=== PATIENT | female | born 1995 | race Caucasian/White ===

== ENCOUNTER 2017-10-01 15:52 | Emergency (ER) | payer SELFPAY ==
[2017-10-01 16:09] LABS: URINE APPEARANCE SL CLOUDY; URINE BILIRUBIN NEGATIVE (NEGATIVE); URINE BLOOD TRACE-I (NEGATIVE); URINE COLOR YELLOW; URINE GLUCOSE (UA) NEGATIVE (NEGATIVE); URINE KETONE NEGATIVE (NEGATIVE); URINE LEUKOCYTE ESTERASE TRACE (NEGATIVE); URINE NITRITE NEGATIVE (NEGATIVE); URINE PROTEIN NEGATIVE (NEGATIVE); URINE UROBILINOGEN 0.2 E.U./dL (0.20 - 1.00)
--- NOTE | 2017-10-01 16:18 | Emergency Department Record ---
History of Present Illness - General Chief Complaint: Abdominal Pain Stated Complaint: ABDOMINAL PAIN Time Seen by Provider: 10/01/17 15:57 Mode of Arrival: Ambulatory - History of Present Illness Initial Comments: abdominal pain bilateral and vomiting and diarrhea and glucose 104 used her grandmother's glucose machine. PSH appendectomy. Onset/Timin -: Month(s) Location: Diffuse Radiation: Back Severity: Moderate Quality: Cramping Consistency: Constant Improves With: Rest Worsens With: Movement Associated Symptoms: Anorexia Treatments Prior to Arrival: NSAIDs - Related Data LMP (females 10-50): Unknown Patient : No Previous Rx's Medication Instructions Recorded Acetaminophen with Codeine 1 each PO Q6HR #14 tablet 10/01/17 [Tylenol with Codeine #3 Tablet] Levofloxacin [Levaquin Tab] 500 mg PO DAILY #10 tab 10/01/17 Metronidazole [Flagyl] 500 mg PO TID #30 tablet 10/01/17 Allergies Allergy/AdvReac Type Severity Reaction Status Date / Time cefaclor [From Ceclor] Allergy HIVES Verified 10/01/17 16:04 acetaminophen [From Vicodin] AdvReac VOMITING Verified 10/01/17 16:04 amoxicillin trihydrate AdvReac VOMITING Verified 10/01/17 16:04 [From Augmentin] hydrocodone bitartrate AdvReac VOMITING Verified 10/01/17 16:04 [From Vicodin] potassium clavulanate AdvReac VOMITING Verified 10/01/17 16:04 [From Augmentin] Travel Screening - Travel/Exposure Within Last 30 Days Have you traveled within the last 30 days?: No - Travel/Exposure Within Last Year Have you traveled outside the [place] in the last year?: No - Additonal Travel Details Have you been exposed to anyone with a communicable illness?: No - Travel Symptoms Symptom Screening: None Review of Systems Reviewed: No additional complaints except as noted below Constitutional: Reports: As per HPI. Denies: Chills, Fever, Malaise, Night sweats, Weakness, Weight change Eyes: Reports: As per HPI. Denies: Eye discharge, Eye pain, Photophobia, Vision change ENT: Reports: As per HPI. Denies: Congestion, Dental pain, Ear pain, Epistaxis , Hearing loss, Throat pain Respiratory: Reports: As per HPI. Denies: Cough, Dyspnea, Hemoptysis, Stridor, Wheezes Cardiovascular: Reports: As per HPI. Denies: Arrhythmia, Chest pain, Dyspnea on exertion, Edema, Murmurs, Orthopnea, Palpitations, Paroxysmal nocturnal dyspnea, Rheumatic Fever, Syncope Endocrine: Reports: As per HPI. Denies: Fatigue, Heat or cold intolerance, Polydipsia, Polyuria Gastrointestinal: Reports: As per HPI, Abdominal pain, Diarrhea, Nausea, Vomiting. Denies: Constipation, Hematemesis, Hematochezia, Melena Genitourinary: Reports: As per HPI. Denies: Abnormal menses, Discharge, Dyspareunia, Dysuria, Frequency, Hematuria, Incontinence, Retention, Urgency Musculoskeletal: Reports: As per HPI. Denies: Arthralgia, Back pain, Gout, Joint swelling, Myalgia, Neck pain Skin: Reports: As per HPI. Denies: Bruising, Change in color, Change in hair/ nails, Lesions, Pruritus, Rash Neurological: Reports: As per HPI. Denies: Abnormal gait, Confusion, Headache, Numbness, Paresthesias, Seizure, Tingling, Tremors, Vertigo, Weakness Psychiatric: Reports: As per HPI. Denies: Anxiety, Auditory hallucinations, Depression, Homicidal thoughts, Suicidal thoughts, Visual hallucinations Hematological/Lymphatic: Reports: As per HPI. Denies: Anemia, Blood Clots, Easy bleeding, Easy bruising, Swollen glands Past Medical History - SOCIAL HISTORY Smoking Status: Never smoker Alcohol Use: Occasional Drug Use: None - RESPIRATORY Hx Respiratory Disorders: No - CARDIOVASCULAR Hx Cardio Disorders: No - NEURO Hx Neuro Disorders: No - GI Hx GI Disorders: No - Hx Genitourinary Disorders: No - ENDOCRINE Hx Endocrine Disorders: No - MUSCULOSKELETAL Hx Musculoskeletal Disorders: No - PSYCH Hx Psych Problems: No - HEMATOLOGY/ONCOLOGY Hx Hematology/Oncology Disorders: Yes Hx Anemia: Yes Family Medical History Any Significant Family History?: Yes Family Hx Comment (NOT TO BE USED IN PLACE OF ITEMS BELOW): Mom hysterecotmy Hx Kidney Disease: Father, Mother Physical Exam - General General Appearance: Alert, Oriented x3, Cooperative, No acute distress - Head Head exam: Normal inspection - Eye Eye exam: Normal appearance, PERRL Pupils: Normal accommodation - ENT ENT exam: Normal exam, Mucous membranes moist, Normal external ear exam, Normal orophraynx, TM's normal bilaterally Ear exam: Normal external inspection. negative: External canal tenderness Nasal Exam: Normal inspection. negative: Discharge, Sinus tenderness Mouth exam: Normal external inspection, Tongue normal Teeth exam: Normal inspection. negative: Dental caries Throat exam: Normal inspection. negative: Tonsillar erythema, Tonsillar exudate - Neck Neck exam: Normal inspection, Full ROM. negative: Tenderness - Respiratory Respiratory exam: Normal lung sounds bilaterally. negative: Respiratory distress - Cardiovascular Cardiovascular Exam: Regular rate, Normal rhythm, Normal heart sounds - GI/Abdominal GI/Abdominal exam: Soft, Normal bowel sounds, Tenderness (abdominal pain right worse than left ) - Rectal Rectal exam: Deferred - exam: Adnexal tenderness (L), Adnexal tenderness (R), Cervical discharge, cervical motion tenderness, Normal external exam, Vaginal discharge. negative: Abnormal external exam, Adnexal mass (L), Adnexal mass (R), Enlarged uterus - Extremities Extremities exam: Normal inspection, Full ROM, Normal capillary refill. negative: Tenderness - Back Back exam: Reports: Normal inspection, Full ROM. Denies: Muscle spasm, Rash noted, Tenderness - Neurological Neurological exam: Alert, Normal gait, Oriented X3, Reflexes normal - Psychiatric Psychiatric exam: Normal affect, Normal mood - Skin Skin exam: Dry, Intact, Normal color, Warm Course Vital Signs 10/01/17 16:05 Temperature 98 F Pulse Rate 112 H Respiratory 20 Rate Blood Pressure 140/87 Pulse Ox 100 - Reevaluation(s) Reevaluation #1: dilaudid given after pelvix esam 10/01/17 17:58 Reevaluation #2: patient is feeling better and will treat outpatient. 10/01/17 19:30 Medical Decision Making - Data Complexity MDM Data: Labs Ordered and/or Reviewed, X-Ray Ordered and/or Reviewed (CT of abdomin and pelvis neg ) - Lab Data Result diagrams: 10/01/17 16:40 10/01/17 16:40 Disposition Clinical Impression: PID (acute pelvic inflammatory disease) Abdominal pain Qualifiers: Abdominal location: lower abdomen, unspecified Qualified Code(s): R10.30 - Lower abdominal pain, unspecified Disposition: Home, Self-Care Condition: (1) Good Instructions: Pelvic Inflammatory Disease (ED) Additional Instructions: follow up with family in 2-6 days return if worse Prescriptions: Acetaminophen with Codeine [Tylenol with Codeine #3 Tablet] 1 each PO Q6HR #14 tablet Levofloxacin [Levaquin Tab] 500 mg PO DAILY #10 tab Metronidazole [Flagyl] 500 mg PO TID #30 tablet Forms: Patient Portal Access Time of Disposition: 19:24 Quality - Quality Measures Quality Measures: N/A - Blood Pressure Screening Does Patient Have Any of the Following: No Blood Pressure Classification: Pre-Hypertensive BP Reading Systolic Measurement: 140 Diastolic Measurement: 87 Screening for High Blood Pressure: < Pre-Hypertensive BP, F/U Documented > [ G8950] Pre-Hypertensive Follow-up Interventions: Referral to alternative/primary care provider.
[2017-10-01 16:21] LABS: HCG,QUALITATIVE URINE NEGATIVE (NEGATIVE); URINE BACTERIA 2+; URINE RBC 0 - 2 (NONE SEEN)
[2017-10-01 16:47] LABS: BASO % 0.3 % (0-6); EOS % 3.5 % (0-6); GRAN % 56.4 % (47-80); HEMOGLOBIN 14.6 gm/dl (11.6-16.0); MEAN CELL VOLUME 87.8 fl (81-97); MEAN CORPUSCULAR HEMOGLOBIN 29.8 pg (27-33); MEAN PLATELET VOLUME 9.8 fl (7.4-10.4); MONO % 6.8 % (0-9); PLATELET COUNT 213 K/uL (130-400); RED CELL DISTRIBUTION WIDTH 12.6 % (11.5-14.5); WHITE BLOOD COUNT W/O DIFF 6.9 K/uL (4.2-12.2)
[2017-10-01 17:18] LABS: BLOOD UREA NITROGEN 10 mg/dL (6-20); CREATININE 0.9 mg/dL (0.5-0.9); EST GLOMERULAR FILTRATION RATE > 60 mL/min
[2017-10-01 17:19] LABS: TOTAL PROTEIN 7.3 g/dL (6.6-8.7)
[2017-10-01 17:21] LABS: GLUCOSE,RANDOM 93 mg/dL (74-109)
[2017-10-01 17:23] LABS: ALBUMIN 4.8 g/dL (4.0-5.0); ALT/SGPT 8 U/L (<33); AST/SGOT 16 U/L (10.0-35.0)
[2017-10-01 17:24] LABS: ALKALINE PHOSPHATASE 52 U/L (35-104); LIPASE 18 U/L (13-60)
[2017-10-01 17:25] LABS: BILIRUBIN,DIRECT < 0.2 mg/dL (0-0.3)
[2017-10-01] MEDS: HYDROMORPHONE HCL 1 MG/ML SYRINGE IVP ONE (18:11)
[2017-10-01] MEDS: LEVOFLOXACIN/D5W 750 MG/150 ML BAG IVPB ONE (18:12)
[2017-10-01] MEDS: 0.9 % SODIUM CHLORIDE 1,000 ML BAG IV ONE (18:12)
--- NOTE | 2017-10-01 19:37 | Emergency Department Record ---
History of Present Illness - General Chief Complaint: Abdominal Pain Stated Complaint: ABDOMINAL PAIN Time Seen by Provider: 10/01/17 15:57 Mode of Arrival: Ambulatory - History of Present Illness Onset/Timin -: Month(s) Location: Diffuse Radiation: Back Severity: Moderate Quality: Cramping Consistency: Constant Improves With: Rest Worsens With: Movement Associated Symptoms: Anorexia Treatments Prior to Arrival: NSAIDs - Related Data LMP (females 10-50): Unknown Patient : No Previous Rx's Medication Instructions Recorded Acetaminophen with Codeine 1 each PO Q6HR #14 tablet 10/01/17 [Tylenol with Codeine #3 Tablet] Levofloxacin [Levaquin Tab] 500 mg PO DAILY #10 tab 10/01/17 Metronidazole [Flagyl] 500 mg PO TID #30 tablet 10/01/17 Ondansetron HCl [Zofran] 4 mg PO Q4HR #10 tablet 10/01/17 Allergies Allergy/AdvReac Type Severity Reaction Status Date / Time cefaclor [From Ceclor] Allergy HIVES Verified 10/01/17 16:04 acetaminophen [From Vicodin] AdvReac VOMITING Verified 10/01/17 16:04 amoxicillin trihydrate AdvReac VOMITING Verified 10/01/17 16:04 [From Augmentin] hydrocodone bitartrate AdvReac VOMITING Verified 10/01/17 16:04 [From Vicodin] potassium clavulanate AdvReac VOMITING Verified 10/01/17 16:04 [From Augmentin] Travel Screening - Travel/Exposure Within Last 30 Days Have you traveled within the last 30 days?: No - Travel/Exposure Within Last Year Have you traveled outside the [place] in the last year?: No - Additonal Travel Details Have you been exposed to anyone with a communicable illness?: No - Travel Symptoms Symptom Screening: None Review of Systems Constitutional: Reports: As per HPI. Denies: Chills, Fever, Malaise, Night sweats, Weakness, Weight change Eyes: Reports: As per HPI. Denies: Eye discharge, Eye pain, Photophobia, Vision change ENT: Reports: As per HPI. Denies: Congestion, Dental pain, Ear pain, Epistaxis , Hearing loss, Throat pain Respiratory: Reports: As per HPI. Denies: Cough, Dyspnea, Hemoptysis, Stridor, Wheezes Cardiovascular: Reports: As per HPI. Denies: Arrhythmia, Chest pain, Dyspnea on exertion, Edema, Murmurs, Orthopnea, Palpitations, Paroxysmal nocturnal dyspnea, Rheumatic Fever, Syncope Endocrine: Reports: As per HPI. Denies: Fatigue, Heat or cold intolerance, Polydipsia, Polyuria Gastrointestinal: Reports: As per HPI, Abdominal pain, Diarrhea, Nausea, Vomiting. Denies: Constipation, Hematemesis, Hematochezia, Melena Genitourinary: Reports: As per HPI. Denies: Abnormal menses, Discharge, Dyspareunia, Dysuria, Frequency, Hematuria, Incontinence, Retention, Urgency Musculoskeletal: Reports: As per HPI. Denies: Arthralgia, Back pain, Gout, Joint swelling, Myalgia, Neck pain Skin: Reports: As per HPI. Denies: Bruising, Change in color, Change in hair/ nails, Lesions, Pruritus, Rash Neurological: Reports: As per HPI. Denies: Abnormal gait, Confusion, Headache, Numbness, Paresthesias, Seizure, Tingling, Tremors, Vertigo, Weakness Psychiatric: Reports: As per HPI. Denies: Anxiety, Auditory hallucinations, Depression, Homicidal thoughts, Suicidal thoughts, Visual hallucinations Hematological/Lymphatic: Reports: As per HPI. Denies: Anemia, Blood Clots, Easy bleeding, Easy bruising, Swollen glands Past Medical History - SOCIAL HISTORY Smoking Status: Never smoker Alcohol Use: Occasional Drug Use: None - RESPIRATORY Hx Respiratory Disorders: No - CARDIOVASCULAR Hx Cardio Disorders: No - NEURO Hx Neuro Disorders: No - GI Hx GI Disorders: No - Hx Genitourinary Disorders: No - ENDOCRINE Hx Endocrine Disorders: No - MUSCULOSKELETAL Hx Musculoskeletal Disorders: No - PSYCH Hx Psych Problems: No - HEMATOLOGY/ONCOLOGY Hx Hematology/Oncology Disorders: Yes Hx Anemia: Yes Family Medical History Any Significant Family History?: Yes Family Hx Comment (NOT TO BE USED IN PLACE OF ITEMS BELOW): Mom hysterecotmy Hx Kidney Disease: Father, Mother Course Vital Signs 10/01/17 10/01/17 16:05 18:49 Temperature 98 F Pulse Rate 112 H Pulse Rate [ 72 Pulse Ox Probe] Respiratory 20 20 Rate Blood Pressure 140/87 Blood Pressure 120/69 [Right Arm] Pulse Ox 100 99 Medical Decision Making - Lab Data Result diagrams: 10/01/17 16:40 10/01/17 16:40 Lab Results 01/10/01/17 10/01/17 Range/Units 16:00 16:24 16:40 WBC 6.9 (4.2-12.2) K/uL RBC 4.90 (3.80-5.40) M/uL Hgb 14.6 (11.6-16.0) gm/dl Hct 43.0 (35.0-47.0) % MCV 87.8 (81-97) fl MCH 29.8 (27-33) pg MCHC 34.0 (32-36) g/dl RDW 12.6 (11.5-14.5) % Plt Count 213 (130-400) K/uL MPV 9.8 (7.4-10.4) fl Gran % 56.4 (47-80) % Lymphocytes % 33.0 (16-45) % Monocytes % 6.8 (0-9) % Eosinophils % 3.5 (0-6) % Basophils % 0.3 (0-6) % Sodium (136-145) mmol/L Potassium (3.4-4.5) mmol/L Chloride (98-107) mmol/L Carbon Dioxide (22-29) mmol/L Anion Gap (7-16) BUN (6-20) mg/dL Creatinine (0.5-0.9) mg/dL Estimated GFR mL/min Random Glucose (74-109) mg/dL Calcium (8.6-10.0) mg/dL Total Bilirubin (0.2-1.0) mg/dL Direct Bilirubin (0-0.3) mg/dL AST (10.0-35.0) U/L ALT (<33) U/L Alkaline Phosphatase (35-104) U/L Total Protein (6.6-8.7) g/dL Albumin (4.0-5.0) g/dL Lipase (13-60) U/L Urine Color Yellow Cancelled Urine Appearance Sl cloudy Cancelled Urine pH 6.0 Cancelled (5.0-8.0) Ur Specific [place] >= 1.030 Cancelled (1.002-1.030) Urine Protein Negative Cancelled (NEGATIVE) Urine Glucose (UA) Negative Cancelled (NEGATIVE) Urine Clinitest Cancelled Urine Ketones Negative Cancelled (NEGATIVE) Urine Blood Trace-i Cancelled (NEGATIVE) Urine Nitrite Negative Cancelled (NEGATIVE) Urine Bilirubin Negative Cancelled (NEGATIVE) Urine Ictotest Cancelled Prot Sulfosalicylic Acd Cancelled Urine Urobilinogen 0.2 Cancelled (0.20 - 1.00) E.U./dL Ur Leukocyte Esterase Trace H Cancelled (NEGATIVE) Urine RBC 0 - 2 (NONE SEEN) Urine WBC 3 - 5 (0-2/hpf) Ur Epithelial Cells 3 - 6 (FEW) Urine Bacteria 2+ Urine HCG, Qual Negative (NEGATIVE) Wet Prep (NONE SEEN) 10/01/17 10/01/17 Range/Units 16:40 18:00 WBC (4.2-12.2) K/uL RBC (3.80-5.40) M/uL Hgb (11.6-16.0) gm/dl Hct (35.0-47.0) % MCV (81-97) fl MCH (27-33) pg MCHC (32-36) g/dl RDW (11.5-14.5) % Plt Count (130-400) K/uL MPV (7.4-10.4) fl Gran % (47-80) % Lymphocytes % (16-45) % Monocytes % (0-9) % Eosinophils % (0-6) % Basophils % (0-6) % Sodium 139 (136-145) mmol/L Potassium 3.8 (3.4-4.5) mmol/L Chloride 99 (98-107) mmol/L Carbon Dioxide 25.0 (22-29) mmol/L Anion Gap 15.0 (7-16) BUN 10 (6-20) mg/dL Creatinine 0.9 (0.5-0.9) mg/dL Estimated GFR > 60 mL/min Random Glucose 93 (74-109) mg/dL Calcium 9.7 (8.6-10.0) mg/dL Total Bilirubin 0.90 (0.2-1.0) mg/dL Direct Bilirubin < 0.2 (0-0.3) mg/dL AST 16 (10.0-35.0) U/L ALT 8 (<33) U/L Alkaline Phosphatase 52 (35-104) U/L Total Protein 7.3 (6.6-8.7) g/dL Albumin 4.8 (4.0-5.0) g/dL Lipase 18 (13-60) U/L Urine Color Urine Appearance Urine pH (5.0-8.0) Ur Specific [place] (1.002-1.030) Urine Protein (NEGATIVE) Urine Glucose (UA) (NEGATIVE) Urine Clinitest Urine Ketones (NEGATIVE) Urine Blood (NEGATIVE) Urine Nitrite (NEGATIVE) Urine Bilirubin (NEGATIVE) Urine Ictotest Prot Sulfosalicylic Acd Urine Urobilinogen (0.20 - 1.00) E.U./dL Ur Leukocyte Esterase (NEGATIVE) Urine RBC (NONE SEEN) Urine WBC (0-2/hpf) Ur Epithelial Cells (FEW) Urine Bacteria Urine HCG, Qual (NEGATIVE) Wet Prep No trich or yeast (NONE SEEN) Disposition Clinical Impression: PID (acute pelvic inflammatory disease) Abdominal pain Qualifiers: Abdominal location: lower abdomen, unspecified Qualified Code(s): R10.30 - Lower abdominal pain, unspecified Disposition: Home, Self-Care Condition: (1) Good Instructions: Pelvic Inflammatory Disease (ED) Additional Instructions: follow up with family in 2-6 days return if worse Prescriptions: Ondansetron HCl [Zofran] 4 mg PO Q4HR #10 tablet Acetaminophen with Codeine [Tylenol with Codeine #3 Tablet] 1 each PO Q6HR #14 tablet Levofloxacin [Levaquin Tab] 500 mg PO DAILY #10 tab Metronidazole [Flagyl] 500 mg PO TID #30 tablet Forms: Patient Portal Access Time of Disposition: 19:37 Quality - Quality Measures Quality Measures: N/A - Blood Pressure Screening Does Patient Have Any of the Following: No Blood Pressure Classification: Pre-Hypertensive BP Reading Systolic Measurement: 140 Diastolic Measurement: 87 Screening for High Blood Pressure: < Pre-Hypertensive BP, F/U Documented > [ G8950] Pre-Hypertensive Follow-up Interventions: Referral to alternative/primary care provider.
[2017-10-01] MEDS: ONDANSETRON HCL IV 4 MG/2 ML VIAL IVP ONE (19:44)
[2017-10-01] MEDS: METRONIDAZOLE 250 MG TABLET PO ONE (19:53)
--- NOTE | 2017-10-02 14:25 | CT SCAN REPORT ---
EXAM: CT OF THE ABDOMEN AND PELVIS WITHOUT CONTRAST HISTORY: WORSENING MENSTRUAL CRAMPS OVER THE PAST SEVERAL MONTHS. TECHNIQUE: Routine helical CT examination of the abdomen and pelvis was performed without oral or intravenous contrast administration. Lack of oral and IV contrast utilization limits evaluation of the bowel and solid viscera respectively. Comparison: CT of the abdomen and pelvis without contrast dated 05/21/16. FINDINGS: The lung bases are clear. No pleural or pericardial effusion. The heart is not enlarged. The liver, spleen, pancreas, and adrenal glands are without focal abnormality. The spleen is at the upper limits of normal in size, stable. The gallbladder is unremarkable. No biliary ductal dilatation is seen. No intraabdominal nor retroperitoneal lymphadenopathy is present. As demonstrated on the prior examination, there are several nonenlarged lymph nodes in the central mesentery. The kidneys are normal in size, position, and are smoothly marginated. No nephrolithiasis nor renal mass. The renal collecting systems are normal in caliber and there is no evidence of ureteral calculus. No focal urinary bladder abnormality is seen though evaluation is somewhat limited by incomplete distention. No new pelvic mass nor adenopathy. There are likely small follicles within the ovaries. There is a small amount of free fluid in the cul-de-sac. This is nonspecific, but likely physiologic. No gross bowel dilatation nor bowel wall thickening. Post appendectomy changes redemonstrated. IMPRESSION: 1. SMALL AMOUNT OF FREE FLUID IN THE CUL-DE-SAC IS NONSPECIFIC, BUT LIKELY PHYSIOLOGIC. 2. STATUS POST APPENDECTOMY. 3. STABLE BORDERLINE SPLENOMEGALY. THE EXAMINATION IS OTHERWISE NEGATIVE. JOB NUMBER: [id number] [facility]
[2017-10-02 23:46] LABS: GC SPECIMEN TYPE Cervix
== END 2017-10-01 20:17 | disposition home or self-care (01) ==
LOC: ER 15:52
DX: N73.9 Female pelvic inflammatory disease, unspecified (principal); R10.30 Lower abdominal pain, unspecified; R19.7 Diarrhea, unspecified; R11.11 Vomiting without nausea
CPT/HCPCS: 74176; 80048; 80076; 81001; 81025; 83690; 85025; 87210; 96374; 96375; 99285; J1170; J1956; J2405; J7030